=== PATIENT | female | born 1950 | race Caucasian/White ===

== ENCOUNTER → 2017-04-02 | Outpatient (CLI) | payer MEDICARE, MEDICAID | LOC: M SMT 13:52 | DX: J47.9 Bronchiectasis, uncomplicated (principal) | CPT/HCPCS: 71046 ==

== ENCOUNTER 2017-10-22 07:44 | Day surgery (SDC) | payer OTHER, MEDICAID ==
[2017-10-22] MEDS: CEFUROXIME 1MG/0.1ML INTRACAMERAL INJ As Ordered (06:28)
[~2017-10-22 07:44] MED LIST: MIDAZOLAM INJ 2 MG/2 ML VIAL (J2250) As Ordered; ONDANSETRON 4MG/2ML VIAL (J2405) As Ordered; UNRESOLVED CLARIFICATION ENTRY XX; fentaNYL 100 MCG/2 ML INJECTION (J3010) As Ordered
[2017-10-22] MEDS: TROPICAMIDE 1% OPHTH SOLN 2ML OD (09:15)
[2017-10-22] MEDS: CYCLOPENTOLATE 2% OPHTH SOLN 2ML BTL OD (09:15)
[2017-10-22] MEDS: PHENYLEPHRINE 2.5% OPHTH SOL 2ML OD (09:15)
[2017-10-22] MEDS: LIDOCAINE 3.5 % 1ML OPHTH TOPICAL GEL OU (09:15)
[2017-10-22 09:40] LABS: BEDSIDE GLUCOSE 100 MG/DL (80-115)
[2017-10-22] MEDS: LIDOCAINE 1% SDV 5 ML VIAL As Ordered (11:09)
[2017-10-22] MEDS: POVIDONE-IODINE 5% OPHTH PREP SOL 30ML As Ordered (11:09)
[2017-10-22] MEDS: HEALON DUET (HEALON 10MG/ML 0.55ML & HEALON ENDOCOAT 30MG/ML 0.85ML) As Ordered (11:09)
[2017-10-22] MEDS: BSS with VANC/TOB/EPI for EYE CASES IR (11:09)
[2017-10-22] MEDS: OFLOXACIN 0.3 % (OCUFLOX) OPTH SOL 5ML OD (11:10)
[2017-10-22] MEDS: MOXIFLOXACIN IN BSS 0.25MG/0.25ML INTRACAMERAL INJ (OR EYE ONLY)(J2280) As Ordered ×2 (11:10)
[2017-10-22] MEDS: TRIAMCINOLONE PRES FR 40 MG/ML 1ML(TRIESENCE)(OR EYE ONLY)(J3300 PER 1MG) As Ordered (11:10)
[2017-10-22] MEDS: PHENYLEPHRINE HCL 10 % OPHTH. SOL 5ML OD (11:10)
== END 2017-10-22 12:46 | disposition home or self-care (01) ==
LOC: M SDC 07:44
DX: H26.9 Unspecified cataract (principal); H52.201 Unspecified astigmatism, right eye; I10 Essential (primary) hypertension; E78.00 Pure hypercholesterolemia, unspecified; R60.0 Localized edema; E11.9 Type 2 diabetes mellitus without complications; K21.9 Gastro-esophageal reflux disease without esophagitis; D64.9 Anemia, unspecified; R29.898 Other symptoms and signs involving the musculoskeletal system; M12.9 Arthropathy, unspecified; M51.9 Unspecified thoracic, thoracolumbar and lumbosacral intervertebral disc disorder; M79.7 Fibromyalgia; M19.90 Unspecified osteoarthritis, unspecified site; F32.9 Major depressive disorder, single episode, unspecified; J44.9 Chronic obstructive pulmonary disease, unspecified; R06.02 Shortness of breath; Z88.8 Allergy status to other drugs, medicaments and biological substances; Z91.040 Latex allergy status; Z79.899 Other long term (current) drug therapy; Z79.01 Long term (current) use of anticoagulants; Z79.82 Long term (current) use of aspirin; Z79.84 Long term (current) use of oral hypoglycemic drugs; Z86.73 Personal history of transient ischemic attack (TIA), and cerebral infarction without residual deficits; Z90.710 Acquired absence of both cervix and uterus; Z87.891 Personal history of nicotine dependence; Z96.652 Presence of left artificial knee joint; Z98.84 Bariatric surgery status; Z85.828 Personal history of other malignant neoplasm of skin
CPT/HCPCS: 66984

== ENCOUNTER 2017-10-30 10:06 | Day surgery (SDC) | payer OTHER, MEDICAID ==
[~2017-10-30 10:06] MED LIST changes: +ACETAMINOPHEN 325 MG TAB PO; -MIDAZOLAM INJ 2 MG/2 ML VIAL (J2250) As Ordered; -ONDANSETRON 4MG/2ML VIAL (J2405) As Ordered; +PHENYLEPHRINE HCL 10 % OPHTH. SOL 5ML OS; -UNRESOLVED CLARIFICATION ENTRY XX; -fentaNYL 100 MCG/2 ML INJECTION (J3010) As Ordered
[2017-10-30] MEDS: TROPICAMIDE 1% OPHTH SOLN 2ML OS (10:47)
[2017-10-30] MEDS: CYCLOPENTOLATE 2% OPHTH SOLN 2ML BTL OS (10:47)
[2017-10-30] MEDS: LIDOCAINE 3.5 % 1ML OPHTH TOPICAL GEL OU (10:47)
[2017-10-30] MEDS: PHENYLEPHRINE 2.5% OPHTH SOL 2ML OS (10:47)
[2017-10-30 10:53] LABS: BEDSIDE GLUCOSE 112 MG/DL (80-115)
[2017-10-30] MEDS ORDERED: MIDAZOLAM INJ 2 MG/2 ML VIAL (J2250) As Ordered (11:34)
[2017-10-30] MEDS: POVIDONE-IODINE 5% OPHTH PREP SOL 30ML As Ordered (12:25)
[2017-10-30] MEDS: LIDOCAINE 1% SDV 5 ML VIAL As Ordered (12:28)
[2017-10-30] MEDS: TRIAMCINOLONE PRES FR 40 MG/ML 1ML(TRIESENCE)(OR EYE ONLY)(J3300 PER 1MG) As Ordered (12:29)
[2017-10-30] MEDS: LIDOCAINE 2% W/EPIN INJ 20ML **PRES FREE XX (12:29)
[2017-10-30] MEDS: BSS with VANC/TOB/EPI for EYE CASES IR (12:29)
[2017-10-30] MEDS: HEALON DUET (HEALON 10MG/ML 0.55ML & HEALON ENDOCOAT 30MG/ML 0.85ML) As Ordered (12:29)
[2017-10-30] MEDS ORDERED: TOBRADEX OPHTH OINT 3.5 GM As Ordered (12:36)
[2017-10-30] MEDS ORDERED: ONDANSETRON 4MG/2ML VIAL (J2405) IV (13:00)
[2017-10-30] MEDS ORDERED: TRIMETHOBENZAMIDE 300 MG CAP PO (13:00)
[2017-10-30] MEDS: AcetaZOLAMIDE 500 MG ER CAP PO (13:18)
== END 2017-10-30 13:50 | disposition home or self-care (01) ==
LOC: M SDC 10:06
DX: H25.9 Unspecified age-related cataract (principal); E11.9 Type 2 diabetes mellitus without complications; I10 Essential (primary) hypertension; E78.5 Hyperlipidemia, unspecified; Z91.040 Latex allergy status; Z88.1 Allergy status to other antibiotic agents; Z88.8 Allergy status to other drugs, medicaments and biological substances; K21.9 Gastro-esophageal reflux disease without esophagitis; F32.9 Major depressive disorder, single episode, unspecified; M79.7 Fibromyalgia; Z87.891 Personal history of nicotine dependence; J44.9 Chronic obstructive pulmonary disease, unspecified; Z79.82 Long term (current) use of aspirin; Z79.899 Other long term (current) drug therapy
CPT/HCPCS: 66984

== ENCOUNTER → 2020-10-15 | Outpatient (CLI) | payer MEDICARE, MEDICAID ==
[~2020-10-15] MED LIST changes: +ACET20%4ML; -ACETAMINOPHEN 325 MG TAB PO; +ADV500INH; +ALBU8.5H; +AMIT10TA7; +ASPI81TA26 PO; +BIOT1CAP2 PO; +CALC-212 PO; +CENTCHW3 PO; +CLOP75TA2; +CYAN500T14; +D31000TA2 PO; +DESV50TA3; +DOCU100C16; +FERR1TAB8; +FERR325T19; +FLUTISP; +FURO40TA2; +HYDR-3716; +IPRA0.00 INH; +LYRI200C; +MAGN500C PO; +MAGN500T2 PO; +METF500T13; +MONT10TA10; +NEXI40CA; +NITR0.4S14 SL; +OLME40TA; -PHENYLEPHRINE HCL 10 % OPHTH. SOL 5ML OS; +POTA1TAB23; +PREG200C; +PRIS50TA PO; +REFR0.5D8 OU; +TRUL10IN SC; +VENTAER INH; +VITA100067 PO; +XYZA5TAB4 PO; +XYZASOL2 PO; +ZADI1DRO OU; +ZOVI5CRE4 TOP
--- NOTE | 2020-10-15 10:44 | REP ---
INDICATION: CALCULUS OF KIDNEY COMPARISON: Outside examination dated 09/01/2020 TECHNIQUE: Axial noncontrast images from the thoracic inlet to the upper abdomen with coronal and sagittal reformations. This CT examination was performed using the following dose reduction techniques: Automated exposure control, adjustment of mA and/or kv according to the patient's size, and use of iterative reconstruction technique. FINDINGS: Lung mcleod demonstrate stable chronic changes including 4 few small noncalcified nodules and non solid area of opacity in the left apex measuring 2.4 cm diameter as well as perihilar and bibasilar fibroatelectatic changes. There is new area of "tree in bud" infiltrate pattern involving the right lower lobe with minimally increased atelectasis and few small poorly defined nodular densities with halo of airspace disease. No acute effusion or pneumothorax. Tracheobronchial tree is patent. No significant adenopathy although few small mediastinal lymph nodes are identified and possibly reactive. Mediastinum demonstrates stable atherosclerotic changes to the thoracic aorta and coronary arteries without aortic aneurysm or cardiomegaly. No pericardial effusion. Limited upper abdomen demonstrates normal bilateral adrenal glands and evidence for prior cholecystectomy. There is a 2 cm dense lesion along the lateral aspect of the left kidney suspicious for complex proteinaceous cyst versus mass. IMPRESSION: 1. Chronic appearing changes to the bilateral lung mcleod as noted above along with superimposed right lower lobe infiltrate and very subtle small nodular densities. Short-term follow-up to resolution is recommended. 2. Cannot exclude 2 cm left renal mass requiring ultrasound follow-up. <Electronically signed by Charanjit Suero > 10/15/20 [id number]
== END ==
LOC: M RAD 08:55
PROVIDERS: ATTEND Internal Medicine Pulmonary Disease
DX: Z01.812 Encounter for preprocedural laboratory examination (principal); R91.8 Other nonspecific abnormal finding of lung field; Z20.822 Contact with and (suspected) exposure to COVID-19
CPT/HCPCS: 71250; U0003

== ENCOUNTER → 2020-10-15 | Outpatient (CLI) | payer MEDICARE, MEDICAID | LOC: M LABSMTC 09:42 | PROVIDERS: ATTEND Anesthesiology | DX: Z01.812 Encounter for preprocedural laboratory examination (principal); Z20.822 Contact with and (suspected) exposure to COVID-19 ==

== ENCOUNTER 2020-10-20 07:59 | Day surgery (SDC) | payer MEDICARE, MEDICAID ==
[~2020-10-20] VITALS: Ht 154.9 cm; Wt 86.2 kg
[~2020-10-20 07:59] MED LIST changes: +LIDOCAINE 1% MDV 20ML VIAL SQ PRN; +LR 1,000 ML IV ONE
[2020-10-20] MEDS ORDERED: fentaNYL 100 MCG/2 ML INJECTION (J3010) As Ordered ONE (08:15)
[2020-10-20] MEDS ORDERED: ROCURONIUM BROMIDE 50 MG/5 ML VIAL As Ordered ONE (08:15)
[2020-10-20] MEDS ORDERED: LIDOCAINE 2% 100MG/5ML SDV (FOR ANES.) As Ordered ONE (08:15)
[2020-10-20] MEDS ORDERED: propofoL 200 MG/20 ML VIAL As Ordered ONE (08:15)
[2020-10-20] MEDS ORDERED: MIDAZOLAM INJ 2MG/2ML VIAL (J2250 PER 1MG) As Ordered ONE (08:15)
[2020-10-20] MEDS ORDERED: LIDOCAINE 4% INJ 5ML AMP INH ONE (08:35)
[2020-10-20] MEDS ORDERED: ALBUTEROL SULFATE 2.5 MG/0.5 ML INH NEB SOLN INH ONE (08:35)
[2020-10-20] MEDS ORDERED: THROMBIN SOLN 20,000 UNITS KIT As Ordered ONE (09:14)
[2020-10-20] MEDS ORDERED: LIDOCAINE 1% SDV 30ML VIAL As Ordered ONE (09:14)
[2020-10-20] MEDS ORDERED: CETACAINE SPRAY 5GM As Ordered ONE (09:14)
[2020-10-20] MEDS ORDERED: EPINEPHrine 1MG/10ML SYRINGE 1.5IN As Ordered ONE (09:14)
[2020-10-20] MEDS ORDERED: ONDANSETRON 4MG/2ML VIAL As Ordered ONE (09:44)
[2020-10-20] MEDS ORDERED: dexameTHASONE 4 MG/ML 1ML VIAL (J1100 PER 1MG) As Ordered ONE (09:45)
[2020-10-20] MEDS ORDERED: PHENYLephrine 500MCG 5ML (100MCG/ML) SYRINGE As Ordered ONE (09:55)
[2020-10-20] MEDS ORDERED: LR 1,000 ML IV SCH (10:50)
[2020-10-20] MEDS ORDERED: fentaNYL 100 MCG/2 ML INJECTION (J3010) IV PRN (10:50)
[2020-10-20] MEDS ORDERED: METOCLOPRAMIDE INJ 10MG/2ML VIAL (J2765 PER 1) IV PRN (10:50)
[2020-10-20] MEDS ORDERED: PERCOCET 5MG/325MG TAB PO PRN (10:50)
[2020-10-20] MEDS ORDERED: ONDANSETRON 4MG/2ML VIAL IV PRN (10:50)
--- NOTE | 2020-10-20 11:03 | REP ---
INDICATION: POST OP. COMPARISON: 07/23/2020. TECHNIQUE: Single portable AP view of the chest was performed. FINDINGS: Mild discoid atelectasis is seen in the lung bases bilaterally. There is no pneumothorax. The heart is not enlarged. There is some calcification of the thoracic aorta. IMPRESSION: No pneumothorax. Mild bibasilar discoid atelectasis. <Electronically signed by Anthony Castaneda > 10/20/20 [id number]
--- NOTE | 2020-10-20 11:12 | RO ---
OPERATIVE NOTE DATE OF OPERATION: 10/20/2020 PREOPERATIVE DIAGNOSIS: Left upper lobe lesion, abnormal chest CT. POSTOPERATIVE DIAGNOSIS: Left upper lobe lesion, abnormal chest CT. FINDINGS: Significant amounts of mucous in the airway. PROCEDURE: Bronchoscopy with robotic navigation and radial ultrasound probe. PROCEDURALIST: Kotsa Hector DO [facility] OPERATIONS LIAISON: Dr. Nury Levin SPECIMENS OBTAINED: 1. BAL of right middle lobe. 2. Transbronchial biopsies left upper lobe. 3. Micro-brush left upper lobe. 4. Cytobrush left upper lobe. 5. BAL left upper lobe. ANESTHESIA: General. REPLACEMENT: None. ESTIMATED BLOOD LOSS: Less than 5 ml. COMPLICATIONS: No observed complications. DRAINS: None. DESCRIPTION OF PROCEDURE: After informed consent was reviewed with the patient in the preoperative area, the patient was brought back to [id number] which was a designated for navigation bronchoscopy. The case was handed over the Anesthesia. The patient was then intubated and the case was handed over to az. Time-out was then performed with two patient identifiers, identifying correct site, correct position and correlating the name and date of with the imaging both from the PACS System and from the robotic [place]. After time-out was performed the 1T190 bronchoscope was then introduced into the endotracheal tube with Cetacaine spray. The bing was fairly sharp. There were lots of mucous, thick pools of yellow to green mucous in both airways. RB 1 through 10 was inspected without endobronchial lesions but with bronchioectatic airways and copious amounts of mucous. Similar findings on the left, left mainstem bronchus was normal except for mucous. Left airway was actually slightly clearer than the right. All airways were suctioned of thick mucous. I then advanced the scope into the right middle lobe, performed a BAL. After adequate sampling, the scope was removed and the patient was set up for [place] Bronchoscopy Navigation. The left upper lobe lesion was easily navigated after registration. Radial ultrasound probe confirmed eccentric lesion and picture was taken. Forceps biopsies were conducted under fluoroscopy along with a cytobrush, micro-brush and BAL. Epinephrine was administered to prevent bleeding. After adequate sampling, the [place] bronchoscope was removed. The 1T190 bronchoscope was inserted to insure hemostasis. After hemostasis was insured, the bronchoscope was removed, the case was handed back to Anesthesia, patient extubated. Post-procedure chest x-ray still pending.
[2020-10-20 11:50] VITALS: BP 150/70
== END 2020-10-20 12:00 | disposition home or self-care (01) ==
LOC: M SDC 07:59
PROVIDERS: ATTEND Internal Medicine Pulmonary Disease
DX: C34.12 Malignant neoplasm of upper lobe, left bronchus or lung (principal); J45.20 Mild intermittent asthma, uncomplicated; J47.9 Bronchiectasis, uncomplicated; J32.9 Chronic sinusitis, unspecified; G62.9 Polyneuropathy, unspecified; E11.9 Type 2 diabetes mellitus without complications; Z98.84 Bariatric surgery status; E53.8 Deficiency of other specified B group vitamins; M19.90 Unspecified osteoarthritis, unspecified site; I10 Essential (primary) hypertension; Z87.891 Personal history of nicotine dependence; J42 Unspecified chronic bronchitis; R04.2 Hemoptysis; M79.7 Fibromyalgia; G47.30 Sleep apnea, unspecified; Z91.040 Latex allergy status; Z88.1 Allergy status to other antibiotic agents; Z88.8 Allergy status to other drugs, medicaments and biological substances; Z79.899 Other long term (current) drug therapy; Z79.51 Long term (current) use of inhaled steroids; Z79.82 Long term (current) use of aspirin; Z79.02 Long term (current) use of antithrombotics/antiplatelets; Z79.84 Long term (current) use of oral hypoglycemic drugs; Z79.891 Long term (current) use of opiate analgesic
CPT/HCPCS: 31623; 31624; 31628; 71045; 76000; 87070; 87071; 87077; 87102; 87205; 88104; 88108; 88305; 88313; J1100; J2250; J2370; J2405; J3010; S2900

== ENCOUNTER → 2020-11-22 | Outpatient (CLI) | payer MEDICARE, MEDICAID ==
[~2020-11-22] MED LIST changes: -LIDOCAINE 1% MDV 20ML VIAL SQ PRN; -LR 1,000 ML IV ONE
--- NOTE | 2020-11-23 12:16 | REP ---
INDICATION: STAGING LUNG CANCER C34.12. COMPARISON: No prior PET-CT for comparison. Prior CT examination of the chest 10/15/2020 and 09/01/2020 reviewed. TECHNIQUE: After the intravenous administration of 8.82 mCi of FDG 18 triplane whole-body PET-CT was performed from the skull base to the mid thigh. FINDINGS: The small parenchymal density seen in the right lower lobe abutting the right infrahilar region on the prior CT scan of the chest of 10/15/2020 is hypermetabolic with a maximal SUV value of 3.28. Additional scattered hypermetabolic foci are seen in both lower lobe regions and in the left lower lobe greater than right with the highest SUV value being pleural based and having a maximal SUV value of 3.72. Review of the CT scans of the chest shows only bilateral subtle curvilinear and tiny nodular densities. No dominant mass or spiculated areas identified. No other areas of abnormal hypermetabolic activity are seen within the neck, chest, abdomen, or pelvis. The previously biopsied ground-glass opacity seen in the left lung apex on the prior CT scan is not hypermetabolic. No other areas of abnormal hypermetabolic activity are seen in the neck, chest, abdomen, or pelvis. IMPRESSION: 1. Hypermetabolic activity seen within the chest as described above. <Electronically signed by Demarco Sorenson > 11/23/20 [id number]
== END ==
LOC: M PLARAD 14:36
PROVIDERS: ATTEND Internal Medicine Pulmonary Disease
DX: C34.12 Malignant neoplasm of upper lobe, left bronchus or lung (principal)
CPT/HCPCS: 78815; A9552

== ENCOUNTER → 2021-01-10 | Outpatient (CLI) | payer MEDICARE, MEDICAID ==
[~2021-01-10] MED LIST changes: +ISOVUE-370 76% 100ML VIAL As Ordered ONE; -MONT10TA10; +MONT10TA97
== END ==
LOC: M RAD 15:02
PROVIDERS: ATTEND Nurse Practitioner
DX: C34.92 Malignant neoplasm of unspecified part of left bronchus or lung (principal)
CPT/HCPCS: 71260; Q9967

== ENCOUNTER → 2021-12-13 | Outpatient (REF) | payer MEDICARE, MEDICAID ==
[~2021-12-13] MED LIST changes: -D31000TA2 PO; -ISOVUE-370 76% 100ML VIAL As Ordered ONE; +VITA100093 PO
== END ==
LOC: M LAB REF 12:56
PROVIDERS: ATTEND Internal Medicine Pulmonary Disease
DX: J47.9 Bronchiectasis, uncomplicated (principal)

== ENCOUNTER → 2023-05-18 | Outpatient (REF) | payer MEDICARE, MEDICAID ==
[~2023-05-18] MED LIST changes: -PREG200C; +PREG200C2
== END ==
LOC: M LAB REF 12:13
PROVIDERS: ATTEND Internal Medicine Pulmonary Disease
DX: J47.9 Bronchiectasis, uncomplicated (principal)

== ENCOUNTER → 2023-06-18 | Outpatient (REF) | payer MEDICARE, MEDICAID | LOC: M SFHCPLAZ 12:36 | PROVIDERS: ATTEND Internal Medicine Infectious Disease | DX: A49.8 Other bacterial infections of unspecified site (principal); Z86.19 Personal history of other infectious and parasitic diseases ==

== ENCOUNTER 2023-07-18 08:21 | Outpatient (CLI) | payer MEDICARE, MEDICAID ==
[~2023-07-18 08:21] MED LIST changes: -LIDOCAINE 1% MDV 20ML VIAL As Ordered ONE
[2023-07-18 09:55] VITALS: BP 149/82; O2SAT 96
[2023-07-18] MEDS: SODIUM CHLORIDE 0.9% INJ 10 ML SYR IV ONE (10:22)
[2023-07-18] MEDS: cefTAZidime 2 GM in D5W MINI-BAG PLUS 50 ML IV ONE (10:22)
== END 2023-07-18 11:15 ==
LOC: M INFU 08:21
PROVIDERS: ATTEND Internal Medicine Infectious Disease
DX: J47.1 Bronchiectasis with (acute) exacerbation (principal); Z88.8 Allergy status to other drugs, medicaments and biological substances; Z91.040 Latex allergy status
CPT/HCPCS: 76937; 96365; J0713

== ENCOUNTER → 2023-07-18 | Outpatient (CLI) | payer MEDICARE, MEDICAID ==
[~2023-07-18] MED LIST changes: +LIDOCAINE 1% MDV 20ML VIAL As Ordered ONE
[2023-07-18 08:30] VITALS: BP 142/80; TEMP 97.4; O2SAT 97
== END ==
LOC: M IRPRO 08:18
PROVIDERS: ATTEND Internal Medicine Infectious Disease
DX: J47.1 Bronchiectasis with (acute) exacerbation (principal)

== ENCOUNTER → 2023-09-10 | Outpatient (REF) | payer MEDICARE, MEDICAID | LOC: M LAB REF 16:57 | PROVIDERS: ATTEND Internal Medicine Pulmonary Disease | DX: J47.9 Bronchiectasis, uncomplicated (principal) ==

== ENCOUNTER 2023-11-01 10:32 | Inpatient (IN) | payer MEDICARE, MEDICAID ==
[~2023-11-01] VITALS: Ht 147.3 cm; Wt 87.0 kg
[~2023-11-01 10:32] MED LIST changes: -ALBU8.5H; +ALBU8.5H INH; -AMIT10TA7; +AMIT10TA7 PO; -CYAN500T14; +CYAN500T14 PO; -DOCU100C16; +DOCU100C16 PO; -FERR1TAB8; +FERR1TAB8 PO; -FLUTISP; +FLUTISP NARES; -FURO40TA2; +FURO40TA2 PO; -MONT10TA97; +MONT10TA97 PO; -NEXI40CA; +NEXI40CA PO
[2023-11-01 16:51] VITALS: BP 124/98; TEMP 97.2; O2SAT 98
[2023-11-01 17:33] LABS: BASO % 0.3 % (0.0-1.0); BASO % 0.4 % (0.0-1.0); EOS # 0.3 10^3/uL (0.0-0.5); EOS % 2.9 % (0.0-3.0); EOS % 3.2 % (0.0-3.0); HEMATOCRIT 35.9 % (36.0-47.0); HEMOGLOBIN 11.8 g/dl (12.0-15.5); HEMOGLOBIN 11.9 g/dl (12.0-15.5); LYMPH # 1.2 10^3/uL (1.5-5.0); LYMPH % 11.4 % (24.0-44.0); LYMPH % 11.8 % (24.0-44.0); MEAN CORPUSCULAR HEMOGLOBIN 31.2 pg (27.0-33.0); MEAN CORPUSCULAR HEMOGLOBIN 32.1 pg (27.0-33.0); MEAN CORPUSCULAR HGB CONC 33.1 g/dl (32.0-36.5); MEAN CORPUSCULAR HGB CONC 33.7 g/dl (32.0-36.5); MEAN CORPUSCULAR VOLUME 94.2 fl (80.0-96.0); MEAN CORPUSCULAR VOLUME 95.1 fl (80.0-96.0); MONO # 1.1 10^3/uL (0.0-0.8); MONO % 10.6 % (2.0-8.0); MONO % 9.8 % (2.0-8.0); NEUTROPHILS # 7.5 10^3/uL (1.5-8.5); NEUTROPHILS # 7.6 10^3/uL (1.5-8.5); NEUTROPHILS % 74.3 % (36.0-66.0); NEUTROPHILS % 74.4 % (36.0-66.0); PLATELET COUNT, AUTOMATED 216 10^3/uL (150-450); PLATELET COUNT, AUTOMATED 224 10^3/uL (150-450); RED BLOOD COUNT 3.68 10^6/uL (4.00-5.40); RED BLOOD COUNT 3.81 10^6/uL (4.00-5.40); WHITE BLOOD COUNT 10.1 10^3/uL (4.0-10.0); WHITE BLOOD COUNT 10.2 10^3/uL (4.0-10.0)
[2023-11-01 17:43] LABS: ERYTHROCYTE SEDIMENTATION RATE 46 mm/hr (0-30)
[2023-11-01 17:53] LABS: ALBUMIN 3.6 G/DL (3.2-5.2); ALKALINE PHOSPHATASE 99 U/L (46-116); ALT/SGPT < 9 U/L (7.0-40); AST/SGOT 9 U/L (<34); BILIRUBIN,TOTAL 0.4 MG/DL (0.3-1.2); BLOOD UREA NITROGEN 8 MG/DL (9-23); CALCIUM LEVEL 9.5 MG/DL (8.3-10.6); CARBON DIOXIDE LEVEL 28 MMOL/L (20-31); CHLORIDE LEVEL 97 MMOL/L (98-107); CREATININE FOR GFR 0.56 MG/DL (0.55-1.30); GLOMERULAR FILTRATION RATE > 60.0 (>39); GLUCOSE, FASTING 118 MG/DL (74-106); POTASSIUM SERUM 4.4 MMOL/L (3.5-5.1); SODIUM LEVEL 127 MMOL/L (136-145); TOTAL PROTEIN 6.6 G/DL (5.7-8.2)
[2023-11-01] MEDS ORDERED: LEVO50TA5 PO (18:30)
[2023-11-01] MEDS ORDERED: HYDR-3716 PO (18:30)
[2023-11-01] MEDS ORDERED: LEVOTAB10 PO (18:41)
[2023-11-01] MEDS ORDERED: FLUT1BLS8 INH (18:41)
[2023-11-01] MEDS ORDERED: BACTDSTA PO (18:41)
[2023-11-01] MEDS ORDERED: PREG200C2 PO (18:41)
[2023-11-01] MEDS ORDERED: IPRATROPIUM 0.5MG/ALBUTEROL 2.5MG INH SOL UD 3ML (DUONEB) NEB PRN (18:45)
[2023-11-01] MEDS ORDERED: ONDANSETRON 4MG 2ML VIAL IV PRN (18:45)
[2023-11-01] MEDS ORDERED: SENOKOT S TAB PO PRN (18:45)
[2023-11-01] MEDS ORDERED: MOM 30ML SUSPENSION UDC PO PRN (18:45)
[2023-11-01] MEDS ORDERED: MIRALAX *UNIT DOSE* 17GM PACKET PO PRN (18:45)
[2023-11-01] MEDS ORDERED: ACETAMINOPHEN TAB 650MG DOSE (2X325MG) PO PRN (18:45)
[2023-11-01] MEDS ORDERED: IPRA6SP NARES (18:53)
[2023-11-01] MEDS ORDERED: HOME MED LIST COMPLETE! XX SCH (18:55)
[2023-11-01 18:56] LABS: COMPLEMENT C3 121.1 MG/DL (90.0-170.0); IMMUNOGLOBULIN A 119.3 MG/DL (40-350); IMMUNOGLOBULIN G 715 MG/DL (650-1600)
[2023-11-01] MEDS: IPRATROPIUM 0.5MG/ALBUTEROL 2.5MG INH SOL UD 3ML (DUONEB) NEB SCH (19:19)
[2023-11-01] MEDS ORDERED: NITROGLYCERIN 0.4MG SUBL TABLET SL SCH (19:25)
[2023-11-01] MEDS ORDERED: GLUCAGON INJ 1MG VIAL SC PRN (19:30)
[2023-11-01] MEDS ORDERED: GLUCOSE 4 GM CHEW PO PRN (19:30)
[2023-11-01] MEDS ORDERED: DEXTROSE 50% 50ML SYRINGE IV PRN (19:30)
[2023-11-01] MEDS ORDERED: CALCIUM/VITAMIN D 500 MG TAB PO SCH (21:00)
[2023-11-01 21:01] VITALS: BP 128/78; TEMP 97.5; O2SAT 94
[2023-11-01] MEDS: FLUTICASONE PROP 0.05% NASAL SPRAY 16 GM (FLONASE) NARES SCH (22:03)
[2023-11-01] MEDS: ARTIFICIAL TEARS DROPS 15ML BTL (VISINE DRY RELIEF) OU SCH (22:03)
[2023-11-01] MEDS: cefTAZidime 2 GM in D5W MINI-BAG PLUS 50 ML IV SCH (22:04)
[2023-11-01] MEDS: PANTOPRAZOLE 40MG TAB (PROTONIX) PO SCH (22:04)
[2023-11-01] MEDS: FERROUS SULFATE 325MG TAB PO SCH (22:04)
[2023-11-01] MEDS: MONTELUKAST 10 MG TAB PO SCH (22:04)
[2023-11-01] MEDS: AMITRIPTYLINE 10MG TABLET PO SCH (22:05)
[2023-11-01] MEDS: MULTIVITAMINS/MINERALS THERAP 1 TAB PO SCH (22:05)
[2023-11-01] MEDS: CYANOCOBALAMIN 500 MCG TAB PO SCH (22:06)
[2023-11-01] MEDS: VITAMIN D 1,000 INTERNATIONAL UNITS TABLET PO SCH (22:06)
[2023-11-01] MEDS: DESVENLAFAXINE ER 50MG TABLET (PRISTIQ) PO SCH (22:06)
[2023-11-01] MEDS: ANEXSIA, NORCO 7.5MG/325MG TABLET(HYDROCODONE/APAP) PO SCH (22:07)
[2023-11-01] MEDS: ASPIRIN 81MG ENTERIC TABLET PO SCH (22:07)
[2023-11-01] MEDS: CALCIUM/VITAMIN D 500 MG TAB PO SCH (22:08)
[2023-11-01] MEDS: INSULIN LISPRO (NovoLOG) PER UNIT SC SCH (22:12)
[2023-11-02 04:40] VITALS: BP 130/77; TEMP 97.8; O2SAT 95
[2023-11-02] MEDS: LEVOTHYROXINE 50MCG TABLET (0.05MG) PO SCH (06:05)
[2023-11-02 06:29] LABS: BASO % 0.6 % (0.0-1.0); EOS # 0.4 10^3/uL (0.0-0.5); EOS % 5.3 % (0.0-3.0); HEMATOCRIT 33.4 % (36.0-47.0); HEMOGLOBIN 11.3 g/dl (12.0-15.5); LYMPH # 1.2 10^3/uL (1.5-5.0); LYMPH % 18.2 % (24.0-44.0); MEAN CORPUSCULAR HEMOGLOBIN 31.6 pg (27.0-33.0); MEAN CORPUSCULAR HGB CONC 33.8 g/dl (32.0-36.5); MEAN CORPUSCULAR VOLUME 93.3 fl (80.0-96.0); NEUTROPHILS % 60.4 % (36.0-66.0); PLATELET COUNT, AUTOMATED 201 10^3/uL (150-450); RED BLOOD COUNT 3.58 10^6/uL (4.00-5.40); WHITE BLOOD COUNT 6.7 10^3/uL (4.0-10.0)
[2023-11-02 06:45] LABS: BLOOD UREA NITROGEN 8 MG/DL (9-23); CALCIUM LEVEL 9.2 MG/DL (8.3-10.6); CARBON DIOXIDE LEVEL 27 MMOL/L (20-31); CHLORIDE LEVEL 102 MMOL/L (98-107); GLOMERULAR FILTRATION RATE > 60.0 (>39); GLUCOSE, FASTING 135 MG/DL (74-106); POTASSIUM SERUM 4.1 MMOL/L (3.5-5.1); SODIUM LEVEL 133 MMOL/L (136-145)
[2023-11-02] MEDS: INSULIN LISPRO (NovoLOG) PER UNIT SC SCH (07:30)
[2023-11-02 08:00] VITALS: BP 130/74; TEMP 97.2; O2SAT 94
[2023-11-02] MEDS ORDERED: NON-FORMULARY 1 EA EA INH SCH (09:00)
[2023-11-02] MEDS ORDERED: UNRESOLVED PATIENT OWN MED ORDER XX SCH (09:00)
[2023-11-02] MEDS ORDERED: TRELEGY ELLIPTA INH SCH (09:00)
[2023-11-02] MEDS: BACTRIM 160MG/800MG DS TAB PO SCH (10:32)
[2023-11-02] MEDS: CETIRIZINE (ZyrTEC) 10 MG TAB PO SCH (10:33)
[2023-11-02] MEDS: FUROSEMIDE 40 MG TAB PO SCH (10:34)
[2023-11-02] MEDS: MAGNESIUM OXIDE 400MG TAB (MAG-OX) PO SCH (10:34)
[2023-11-02] MEDS: ADVAIR HFA 230/21MCG INHALER INH SCH (11:26)
[2023-11-02] MEDS: TIOTROPIUM INHALER/CAPSULE (SPIRIVA) INH SCH (11:26)
[2023-11-02 11:39] VITALS: BP 137/94; TEMP 97.3; O2SAT 94
[2023-11-02] MEDS: PREGABALIN 100 MG CAP (LYRICA) PO SCH (12:41)
[2023-11-02] MEDS: FIORICET TAB PO ONE (13:34)
[2023-11-02] MEDS: KETOROLAC 30 MG/ML 1ML VIAL IV ONE (13:34)
[2023-11-02 14:00] VITALS: BP 101/65; TEMP 97.3; O2SAT 95
[2023-11-02 20:00] VITALS: BP 105/64; TEMP 97.3; O2SAT 94
[2023-11-03 04:00] VITALS: BP 111/66; TEMP 97.3; O2SAT 94
[2023-11-03 05:53] LABS: BASO % 0.7 % (0.0-1.0); EOS # 0.3 10^3/uL (0.0-0.5); EOS % 5.3 % (0.0-3.0); HEMATOCRIT 30.4 % (36.0-47.0); HEMOGLOBIN 10.3 g/dl (12.0-15.5); LYMPH # 1.3 10^3/uL (1.5-5.0); LYMPH % 23.8 % (24.0-44.0); MEAN CORPUSCULAR HGB CONC 33.9 g/dl (32.0-36.5); MEAN CORPUSCULAR VOLUME 94.4 fl (80.0-96.0); MONO # 0.8 10^3/uL (0.0-0.8); MONO % 13.9 % (2.0-8.0); NEUTROPHILS % 55.6 % (36.0-66.0); PLATELET COUNT, AUTOMATED 189 10^3/uL (150-450); RED BLOOD COUNT 3.22 10^6/uL (4.00-5.40); WHITE BLOOD COUNT 5.5 10^3/uL (4.0-10.0)
[2023-11-03 06:23] LABS: BLOOD UREA NITROGEN 9 MG/DL (9-23); CALCIUM LEVEL 8.7 MG/DL (8.3-10.6); CARBON DIOXIDE LEVEL 26 MMOL/L (20-31); CHLORIDE LEVEL 99 MMOL/L (98-107); GLOMERULAR FILTRATION RATE > 60.0 (>39); GLUCOSE, FASTING 116 MG/DL (74-106); SODIUM LEVEL 130 MMOL/L (136-145)
[2023-11-03 12:00] VITALS: BP 114/60; TEMP 97.3; O2SAT 94
[2023-11-03 19:45] VITALS: BP 119/73; TEMP 97.2; O2SAT 96
[2023-11-04 04:00] VITALS: BP 131/74; TEMP 97.3; O2SAT 95
[2023-11-04 06:15] LABS: BASO % 0.6 % (0.0-1.0); EOS # 0.5 10^3/uL (0.0-0.5); EOS % 9.7 % (0.0-3.0); HEMATOCRIT 31.6 % (36.0-47.0); HEMOGLOBIN 10.6 g/dl (12.0-15.5); LYMPH # 1.3 10^3/uL (1.5-5.0); LYMPH % 24.1 % (24.0-44.0); MEAN CORPUSCULAR HEMOGLOBIN 31.8 pg (27.0-33.0); MEAN CORPUSCULAR HGB CONC 33.5 g/dl (32.0-36.5); MEAN CORPUSCULAR VOLUME 94.9 fl (80.0-96.0); MONO # 0.7 10^3/uL (0.0-0.8); MONO % 13.3 % (2.0-8.0); NEUTROPHILS # 2.7 10^3/uL (1.5-8.5); NEUTROPHILS % 51.3 % (36.0-66.0); PLATELET COUNT, AUTOMATED 226 10^3/uL (150-450); RED BLOOD COUNT 3.33 10^6/uL (4.00-5.40); WHITE BLOOD COUNT 5.2 10^3/uL (4.0-10.0)
[2023-11-04 06:35] LABS: BLOOD UREA NITROGEN 9 MG/DL (9-23); CALCIUM LEVEL 9.3 MG/DL (8.3-10.6); CARBON DIOXIDE LEVEL 28 MMOL/L (20-31); CHLORIDE LEVEL 103 MMOL/L (98-107); CREATININE FOR GFR 0.53 MG/DL (0.55-1.30); GLOMERULAR FILTRATION RATE > 60.0 (>39); GLUCOSE, FASTING 121 MG/DL (74-106); POTASSIUM SERUM 4.4 MMOL/L (3.5-5.1); SODIUM LEVEL 134 MMOL/L (136-145)
[2023-11-04 12:00] VITALS: BP 129/75; TEMP 97.3; O2SAT 93
[2023-11-04 19:25] VITALS: O2SAT 95
[2023-11-04 19:35] VITALS: BP 121/83; TEMP 97.3; O2SAT 95
[2023-11-04] MEDS: HEPARIN SOD (PORCINE) 5000UNITS/ML 1ML VIAL/SYRINGE SQ SCH (20:46)
[2023-11-05 04:00] VITALS: BP 100/58; TEMP 98.1; O2SAT 91
[2023-11-05] MEDS: CEPACOL LOZENGE PO PRN (04:13)
[2023-11-05 05:20] LABS: BASO % 0.5 % (0.0-1.0); EOS # 0.5 10^3/uL (0.0-0.5); EOS % 8.4 % (0.0-3.0); HEMATOCRIT 31.3 % (36.0-47.0); HEMOGLOBIN 10.3 g/dl (12.0-15.5); LYMPH # 1.2 10^3/uL (1.5-5.0); MEAN CORPUSCULAR HEMOGLOBIN 31.3 pg (27.0-33.0); MEAN CORPUSCULAR HGB CONC 32.9 g/dl (32.0-36.5); MEAN CORPUSCULAR VOLUME 95.1 fl (80.0-96.0); MONO # 0.8 10^3/uL (0.0-0.8); MONO % 13.6 % (2.0-8.0); NEUTROPHILS # 3.1 10^3/uL (1.5-8.5); PLATELET COUNT, AUTOMATED 217 10^3/uL (150-450); RED BLOOD COUNT 3.29 10^6/uL (4.00-5.40); WHITE BLOOD COUNT 5.6 10^3/uL (4.0-10.0)
[2023-11-05 05:45] LABS: BLOOD UREA NITROGEN 9 MG/DL (9-23); CALCIUM LEVEL 8.5 MG/DL (8.3-10.6); CARBON DIOXIDE LEVEL 29 MMOL/L (20-31); CHLORIDE LEVEL 101 MMOL/L (98-107); CREATININE FOR GFR 0.56 MG/DL (0.55-1.30); GLOMERULAR FILTRATION RATE > 60.0 (>39); GLUCOSE, FASTING 117 MG/DL (74-106); POTASSIUM SERUM 4.1 MMOL/L (3.5-5.1); SODIUM LEVEL 133 MMOL/L (136-145)
[2023-11-05] MEDS: FLUCONAZOLE 100 MG TAB PO ONE (10:04)
[2023-11-05 12:00] VITALS: BP 134/70; TEMP 97.3; O2SAT 91
[2023-11-05] MEDS: NYSTATIN 500,000U/5ML SUSP UDC SS SCH (12:40)
[2023-11-05] MEDS ORDERED: BARIUM SULFATE 700 MG TABLET (E-Z-DISK) As Ordered ONE (14:31)
[2023-11-05] MEDS ORDERED: VARIBAR NECTAR 40% w/v 240ML SUSP BTL As Ordered ONE (14:31)
[2023-11-05] MEDS ORDERED: VARIBAR PUDDING 40% w/v 230ML TUBE As Ordered ONE (14:31)
[2023-11-05] MEDS ORDERED: E-Z-PAQUE 96% w/w SUSP 176GM BTL As Ordered ONE (14:31)
[2023-11-05] MEDS ORDERED: CEFD300CAP PO (14:36)
[2023-11-05 19:18] LABS: URINE STREP PNEUMONIAE ANTIGEN NOT DETECTED (NOT DETECT)
== END 2023-11-05 16:18 | disposition home or self-care (01) | DRG 178 ==
LOC: M MSPAV 16:18 → EEVIPCON 16:18
PROVIDERS: ADMIT Internal Medicine; ATTEND General Practice
DX: J15.5 Pneumonia due to Escherichia coli (principal); J47.1 Bronchiectasis with (acute) exacerbation; E87.1 Hypo-osmolality and hyponatremia; J96.11 Chronic respiratory failure with hypoxia; J47.0 Bronchiectasis with acute lower respiratory infection; J45.20 Mild intermittent asthma, uncomplicated; E11.42 Type 2 diabetes mellitus with diabetic polyneuropathy; K21.9 Gastro-esophageal reflux disease without esophagitis; M19.90 Unspecified osteoarthritis, unspecified site; I10 Essential (primary) hypertension; D64.9 Anemia, unspecified; Z79.82 Long term (current) use of aspirin; Z79.01 Long term (current) use of anticoagulants; Z79.890 Hormone replacement therapy; Z79.84 Long term (current) use of oral hypoglycemic drugs; Z79.899 Other long term (current) drug therapy; Z11.52 Encounter for screening for COVID-19; Z90.2 Acquired absence of lung [part of]; Z88.8 Allergy status to other drugs, medicaments and biological substances; Z85.118 Personal history of other malignant neoplasm of bronchus and lung; Z98.84 Bariatric surgery status; Z86.73 Personal history of transient ischemic attack (TIA), and cerebral infarction without residual deficits; Z87.891 Personal history of nicotine dependence; Z99.81 Dependence on supplemental oxygen

== ENCOUNTER → 2023-12-21 | Outpatient (CLI) | payer MEDICARE, MEDICAID ==
[~2023-12-21] MED LIST changes: +BACTDSTA PO; +CEFD300CAP PO; +FLUT1BLS8 INH; +HYDR-3716 PO; +IPRA6SP NARES; +LEVO50TA5 PO; +LEVOTAB10 PO; +PREG200C2 PO
== END ==
LOC: M SOG 08:04
PROVIDERS: ATTEND Orthopaedic Surgery
DX: M25.561 Pain in right knee (principal); Z53.8 Procedure and treatment not carried out for other reasons

== ENCOUNTER 2024-01-15 10:43 | Outpatient (RCR) | payer MEDICARE, MEDICAID | END 2024-02-12 | LOC: M PT 10:43 | PROVIDERS: ATTEND Orthopaedic Surgery | DX: M17.11 Unilateral primary osteoarthritis, right knee (principal) ==

== ENCOUNTER → 2024-01-21 | Outpatient (REF) | payer MEDICARE, MEDICAID | LOC: M LAB REF 12:31 | PROVIDERS: ATTEND Internal Medicine Pulmonary Disease | DX: J47.9 Bronchiectasis, uncomplicated (principal) ==

== ENCOUNTER → 2024-11-10 | Outpatient (REF) | payer MEDICARE, MEDICAID, OTHER ==
[~2024-11-10] MED LIST changes: -ADV500INH; +ADVA1AER10; +AMIT10TA11 PO; -AMIT10TA7 PO
== END ==
LOC: M LAB REF 16:50
PROVIDERS: ATTEND Internal Medicine Pulmonary Disease
DX: J47.9 Bronchiectasis, uncomplicated (principal)